=== PATIENT | male | born 1960 | race Caucasian/White ===

== ENCOUNTER → 2019-08-07 | Outpatient (CLI) | payer BC ==
--- NOTE | 2019-08-09 12:17 | MR ---
EXAMINATION TYPE: MR Prostate wo/w con DATE OF EXAM: 08/07/2019 COMPARISON: None IMAGE QUALITY: Satisfactory. INDICATION: Elevated PSA, 9.31, no prior biopsy PSA: 9.3 ng/ml Recent Biopsy and Date: None Pathology Report (If Applicable): Not applicable TECHNIQUE: Examination was performed using a 3T MRI without an endorectal coil. Multiparametric imaging was perf ormed with T2 mutliplanar sequences, axial diffusion weighted imaging and dynamic contrast enhanced i maging, utilizing 8.5 mL intravenous Gadavist gadolinium contrast. FINDINGS: There is no clinically significant cancer identified. PROSTATE VOLUME: 2.7 x 3.1 x 3.3 cm corresponding to a volume of 14.46 EXPECTED PSA DENSITY: 1.7 ng/ml/cc Site 1: Assessment Category: 5 as there is focal T2 hypointensity, moderate DWI hyperintensity, marked ADC hy pointensity, and size greater than 1.5 cm. Size: 21 mm x 13 mm x 17 mm Location(s): Left lateral and posterior apex (posterior medial and posterior lateral), mid gland (pos terior medial and posterior lateral), and lesser involvement within the posterior base. NVB invasion: Suspected, there is a hazy border of the prostatic capsule on T2 small [id number]-[id number] n onfat saturated series 501 image 22 on the left. EPE: No Multifocal wedge-shaped areas of low intensity are seen within the right peripheral zone without abno rmal ADC or DWI signal. Findings most likely on the basis of prior fibrosis or sequela of prostatitis . Motion artifact is seen on the T2-weighted large [id number] fat saturated images limiting evaluati on. There are multiple sigmoid diverticula seen and some bowel wall thickening of the sigmoid colon t hat may relate to chronic diverticulosis or incomplete distention. There is mild bilateral femoral ac etabular arthropathy. No superficial inguinal adenopathy. Left inguinal canal is patulous and fat jones led. Diffusely patchy bone marrow signal. 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 There is also suspic ion for neurovascular involvement on the left. Patchy bone marrow signal throughout. Nuclear medicine bone scan could be considered. Highest Assessment Category: 5 False negative rates for MRI range from 5-20% depending on risk profile. Assessment Categories: 1 ? Very low (clinically significant cancer is highly unlikely to be present) 2 ? Low (clinically significant cancer is unlikely to be present) 3 ? Intermediate (the presence of clinically significant cancer is equivocal) 4 ? High (clinically significant cancer is likely to be present) 5 ? Very high (clinically significant cancer is highly likely to be present) Locations: PZ = peripheral zone; TZ = transition zone CZ=central zone; AFS = anterior fibromuscular stroma a=anterior half (i.e. PZa=anterior half of peripheral zone); pm= posterior medial (i.e PZpm) pl = postero-lateral (i.e. PZpl); p = posterior half (i.e. TZp) ; a = anterior half (i.e TZa or P Za) Other: N=no or no; E= equivocal; Y=yes EPE = extraprostatic extension NVB = neurovascular bundle NA = not applicable/not available
== END | disposition home or self-care (01) ==
LOC: RADMRIMAIN 08:07
PROVIDERS: ATTEND Surgery
DX: R97.20 Elevated prostate specific antigen [PSA] (principal)
CPT/HCPCS: 72197; A9585